=== PATIENT | female | born 1995 | race Two or more races ===

== ENCOUNTER 2023-12-24 10:39 | Emergency (ER) | payer OTHER ==
[~2023-12-24] VITALS: Ht 157.5 cm; Wt 63.0 kg
[2023-12-24] MEDS ORDERED: ONDANSETRON 4 MG TAB.RAPDIS ONE (11:15)
[2023-12-24] MEDS ORDERED: LORAZEPAM 1 MG TABLET ONE (11:15)
[2023-12-24] MEDS: LORAZEPAM 1 MG TABLET PO ONE (11:18)
[2023-12-24] MEDS: ONDANSETRON 4 MG TAB.RAPDIS SL ONE (11:18)
[2023-12-24 11:45] VITALS: BP 128/77; TEMP 98.4; O2SAT 97
== END 2023-12-24 11:46 | disposition home or self-care (01) ==
LOC: ER 11:03
DX: F19.10 Other psychoactive substance abuse, uncomplicated (principal); Z59.00 Homelessness unspecified
CPT/HCPCS: 99283; Q0162

== ENCOUNTER 2024-01-24 13:13 | Emergency (ER) | payer OTHER ==
[~2024-01-24] VITALS: Ht 157.5 cm; Wt 66.7 kg
[2024-01-24 14:05] LABS: APPEARANCE,URINE Clear (CLEAR); BILIRUBIN,URINE MODERATE (NEGATIVE); BLOOD, URINE Trace-intact Ery/uL (NEGATIVE); COLOR,URINE DARK YELLOW (YELLOW); KETONES,URINE Negative (NEGATIVE); LEUKOCYTE ESTERASE ,URINE Negative (NEGATIVE); NITRITE, URINE Negative (NEGATIVE); PROTEIN,URINE 100 mg/dl (NEGATIVE); UGLUCOSE Negative (NEGATIVE); UROBILINOGEN,URINE 0.2 EU/dL (0.2)
[2024-01-24 14:22] LABS: PREGNANCY TEST URINE QUAL NEGATIVE (NEGATIVE)
[2024-01-24] MEDS ORDERED: CEFTRIAXONE 500 MG VIAL ONE (15:08)
[2024-01-24] MEDS ORDERED: LIDOCAINE /MPF 1% VIAL 5 ML VIAL ONE (15:08)
[2024-01-24] MEDS ORDERED: AZITHROMYCIN 250 MG TABLET ONE (15:09)
[2024-01-24] MEDS: AZITHROMYCIN 250 MG TABLET PO ONE (15:18)
[2024-01-24] MEDS: CEFTRIAXONE 1 G VIAL IM ONE (15:18)
[2024-01-24 15:22] LABS: ADD URINE CULTURE YES; BACTERIA,URINE 1+ /HPF (None Seen); SQUAMOUS EPITHELIAL CELL,UR Few /HPF (None Seen); URINE AMORPHOUS PHOSPHATES Few /HPF (None Seen)
[2024-01-24 15:42] VITALS: BP 127/66; TEMP 98.7; O2SAT 100
[2024-01-25 08:07] LABS: RAPID PLASMA REAGIN QUAL. Non Reactive (Non Reactive)
== END 2024-01-24 15:42 | disposition home or self-care (01) ==
LOC: ER 13:25
DX: R11.0 Nausea (principal); G40.909 Epilepsy, unspecified, not intractable, without status epilepticus; F19.10 Other psychoactive substance abuse, uncomplicated; R10.2 Pelvic and perineal pain; Z32.00 Encounter for pregnancy test, result unknown; Z20.2 Contact with and (suspected) exposure to infections with a predominantly sexual mode of transmission; Z59.00 Homelessness unspecified
CPT/HCPCS: 99283; 86592; 86593; 96372; 84703; 81001; 36415; 84702; J0696; J3490